=== PATIENT | female | born 1995 ===

== ENCOUNTER 2021-05-30 11:00 | Inpatient (IN) | payer OTHER ==
[~2021-05-30] VITALS: Ht 165.1 cm; Wt 88.5 kg
[2021-05-30] MEDS ORDERED: ZOLOFT50 MG PO (15:17)
== END 2021-06-07 11:28 | disposition home or self-care (01) | DRG 735 ==
LOC: OB/GYN 06-05 06:05 → O/R 06-05 06:05 → OB/GYN 06-05 09:55 → O/R 06-05 15:37 → OB/GYN 06-05 16:32
PROVIDERS: ADMIT Obstetrics & Gynecology Gynecologic Oncology; ATTEND Obstetrics & Gynecology Gynecologic Oncology
PROC: 0DBW4ZZ Excision of Peritoneum, Percutaneous Endoscopic Approach (ICD-10-PCS; 2021-06-05)
PROC: 0UB04ZZ Excision of Right Ovary, Percutaneous Endoscopic Approach (ICD-10-PCS; 2021-06-05)
PROC: 0UT64ZZ Resection of Left Fallopian Tube, Percutaneous Endoscopic Approach (ICD-10-PCS; 2021-06-05)
PROC: 0UT14ZZ Resection of Left Ovary, Percutaneous Endoscopic Approach (ICD-10-PCS; 2021-06-05)
PROC: 3E1M38Z Irrigation of Peritoneal Cavity using Irrigating Substance, Percutaneous Approach (ICD-10-PCS; 2021-06-05)
PROC: 07TC4ZZ Resection of Pelvis Lymphatic, Percutaneous Endoscopic Approach (ICD-10-PCS; principal; 2021-06-05 09:55)
DX: D27.0 Benign neoplasm of right ovary (principal); D27.1 Benign neoplasm of left ovary; Z20.822 Contact with and (suspected) exposure to COVID-19